=== PATIENT | female | born 1950 | race Caucasian/White ===

== ENCOUNTER → 2016-10-17 | Outpatient (CLI) | payer OTHER, MEDICARE | LOC: BRMIMAGING 08:16 | PROVIDERS: ATTEND Family Medicine | DX: Z12.31 Encounter for screening mammogram for malignant neoplasm of breast (principal) | CPT/HCPCS: G0202 ==

== ENCOUNTER 2017-05-01 12:43 | Day surgery (SDC) | payer OTHER, MEDICARE ==
[2017-05-01] MEDS ORDERED: LIDOCAINE 1% 300 MG/30 ML SDV ONE (12:55)
[2017-05-01] MEDS ORDERED: BACITRACIN 50,000 UNITS/10 ML SYR IRR ONE (12:56)
[2017-05-01] MEDS ORDERED: BUPIVACAINE 0.5% 30 ML SDV ONE (12:56)
[2017-05-01] MEDS ORDERED: ROPIVACAINE HCL 150 MG/30 ML INJ ONE (12:56)
[2017-05-01] MEDS ORDERED: LR 1,000 ML IV ONE (13:08)
[2017-05-01] MEDS ORDERED: MIDAZOLAM 2 MG/2 ML VIAL IVP ONE (13:14)
--- NOTE | 2017-05-01 13:14 | PDANEPAE ---
ANE History of Present Illness R foot HW removal ANE Past Medical History - Cardiovascular History Hx Hypertension: No Hx Arrhythmias: No Hx Chest Pain: No Hx Coronary Artery / Peripheral Vascular Disease: No Hx CHF / Valvular Disease: No Hx Palpitations: No - Pulmonary History Hx COPD: No Hx Asthma/Reactive Airway Disease: No Hx Recent Upper Respiratory Infection: No Hx Oxygen in Use at Home: No Hx Sleep Apnea: No Sleep Apnea Screening Result - Last Documented: Negative - Neurologic History Hx Cerebrovascular Accident: No Hx Seizures: No Hx Dementia: No - Endocrine History Hx Diabetes: No - Renal History Hx Renal Disorders: No - Liver History Hx Hepatic Disorders: No - Neurological & Psychiatric Hx Hx Neurological and Psychiatric Disorders: No - Cancer History Hx Cancer: No - Congenital Disorder History Hx Congenital Disorders: No - GI History Hx Gastrointestinal Disorders: No - Other Health History Other Health History: TINNITUS. OSTEOARTHRITIS - Chronic Pain History Chronic Pain: Yes (RT KNEE) - Surgical History Prior Surgeries: HYSTERECTOMY. JU KNEE SCOPES. INFERTILITY SURG. RT BIG TOE FUSION 2012. WISDOM TEETH ANE Review of Systems Review of systems is: negative Review of Systems: - Exercise capacity Exercise capacity: >=4 METS METS (RN): 4 METS ANE Patient History - Allergies Allergies/Adverse Reactions: No Known Allergies Allergy (Unverified 01/02/12 16:26) - Home Medications Home medications: home medication list seen and reviewed Home Medications: Ascorbic Acid [Vitamin C 500 mg (OTC)] 4,000 mg PO DAILY 08/05/13 [Last Taken ] Multi-Vitamin Daily 04/19/17 [Last Taken 04/30/17] - Smoking Hx Smoking Status: Former smoker ANE Labs/Vital Signs - Vital Signs Height: 175.26 cm Weight: 85.275 kg ANE Anesthesia Plan Anesthesia Plan: MAC (I did not complete the evaluation of this pt nor care for this pt) Total IV Anesthesia: Yes
[2017-05-01 13:35] VITALS: PULSE 68
[2017-05-01] MEDS ORDERED: ceFAZolin 2 GM/SWFI 2 GM/20 ML SYR IVP ONE (14:08)
--- NOTE | 2017-05-01 14:08 | PDHPUP ---
History & Physical Update H&P update statement: This history and physical update is based on an assessment of the patient which was completed after admission or registration (within 24 hours), but prior to the surgery/procedure. NO CHANGE
[2017-05-01] MEDS ORDERED: fentaNYL 100 MCG/2 ML INJ ONE (14:52)
[2017-05-01] MEDS ORDERED: PROPOFOL/EMULSION 500 MG/50 ML BOTTLE IV ONE ×2 (14:53→15:47)
--- NOTE | 2017-05-01 14:59 | PDANEPAE ---
ANE History of Present Illness Patient presents for R foot hardware removal ANE Past Medical History - Cardiovascular History Hx Hypertension: No Hx Arrhythmias: No Hx Chest Pain: No Hx Coronary Artery / Peripheral Vascular Disease: No Hx CHF / Valvular Disease: No Hx Palpitations: No - Pulmonary History Hx COPD: No Hx Asthma/Reactive Airway Disease: No Hx Recent Upper Respiratory Infection: No Hx Oxygen in Use at Home: No Hx Sleep Apnea: No Sleep Apnea Screening Result - Last Documented: Negative - Neurologic History Hx Cerebrovascular Accident: No Hx Seizures: No Hx Dementia: No - Endocrine History Hx Diabetes: No - Renal History Hx Renal Disorders: No - Liver History Hx Hepatic Disorders: No - Neurological & Psychiatric Hx Hx Neurological and Psychiatric Disorders: No - Cancer History Hx Cancer: No - Congenital Disorder History Hx Congenital Disorders: No - GI History Hx Gastrointestinal Disorders: No - Other Health History Other Health History: TINNITUS. OSTEOARTHRITIS - Chronic Pain History Chronic Pain: Yes (RT KNEE) - Surgical History Prior Surgeries: HYSTERECTOMY. JU KNEE SCOPES. INFERTILITY SURG. RT BIG TOE FUSION 2012. WISDOM TEETH ANE Review of Systems Review of Systems: - Exercise capacity METS (RN): 4 METS ANE Patient History - Allergies Allergies/Adverse Reactions: No Known Allergies Allergy (Unverified 01/02/12 16:26) - Home Medications Home medications: home medication list seen and reviewed Home Medications: Ascorbic Acid [Vitamin C 500 mg (OTC)] 4,000 mg PO DAILY 08/05/13 [Last Taken ] Multi-Vitamin Daily 04/19/17 [Last Taken 04/30/17] - NPO status NPO Status: no food or drink >8 hours NPO Since - Liquids (Date): 05/01/17 NPO Since - Liquids (Time): 09:30 NPO Since - Solids (Date): 04/30/17 NPO Since - Solids (Time): 19:00 - Anes Hx Anes Hx: no prior problems - Smoking Hx Smoking Status: Former smoker ANE Labs/Vital Signs - Vital Signs Blood Pressure: 164/101 Heart Rate: 68 Respiratory Rate: 16 O2 Sat (%): 93 Height: 175.26 cm Weight: 85.275 kg ANE Physical Exam - Airway Neck exam: FROM Mallampati Score: Class 1 Mouth exam: normal dental/mouth exam - Pulmonary Pulmonary: no respiratory distress - Cardiovascular Cardiovascular: regular rate and rhythym - ASA Status ASA Status: I ANE Anesthesia Plan Anesthesia Plan: GA with mask (rba discussed)
[2017-05-01] MEDS ORDERED: LIDOCAINE 2% 5 ML SDV ONE ×2 (15:34→15:47)
[2017-05-01] MEDS ORDERED: ONDANSETRON 4 MG/2 ML VIAL ONE (15:34)
[2017-05-01] MEDS ORDERED: OXYCODONE/APAP 5/325 TAB PO PRN (15:58)
[2017-05-01] MEDS ORDERED: HYDROCODONE/APAP 5/325 TAB PO PRN (15:58)
[2017-05-01] MEDS ORDERED: ONDANSETRON 4 MG/2 ML VIAL IVP PRN (15:58)
[2017-05-01] MEDS ORDERED: fentaNYL 100 MCG/2 ML INJ IVP PRN (15:58)
[2017-05-01] MEDS ORDERED: LR 500 ML IV PRN (15:58)
[2017-05-01] MEDS ORDERED: NALOXONE HCL 0.4 MG/ML INJ IVP PRN (15:58)
--- NOTE | 2017-05-01 16:35 | POSTOPPROG ---
Post Op Note Date of Operation: 05/01/17 Surgeon: Dominga Colindres Injection Operator: NONE Anesthesiologist: DR. ANGELIC PATINO Pre-op Diagnosis: DEEP HARDWARE RIGHT FOOT Post-op Diagnosis: DEEP HARDWARE, RIGHT FOOT Indication: PAIN Procedure: REMOVAL OF HARDWARE RIGHT FOOT. SCREWS AND PLATE Inf/Abcess present in the surg proc area at time of surgery?: No Depth: Deep Incisional (Fascial) EBL: Minimal Complications: NONE
[2017-05-01] MEDS ORDERED: KETOROLAC 15 MG/1 ML SDV IVP ONE (16:37)
--- NOTE | 2017-05-01 16:38 | POSTANESTH ---
Post Anesthetic Evaluation Cardiovascular Status: Normal, Stable Respiratory Status: Normal, Stable Level of Consciousness/Mental Status: Alert and Oriented Pain Control: Adequate, Prn Tx Ordered Nausea/Vomiting Control: Adequate, Prn Tx Ordered Complications Possibly Related to Anesthesia: None Noted
[2017-05-01 16:45] VITALS: TEMP 97.3
[2017-05-01] MEDS ORDERED: KETOROLAC 15 MG/1 ML SDV ONE (16:57)
[2017-05-01 17:27] VITALS: BP 138/73; RESP 14; O2SAT 99
--- NOTE | 2017-05-02 04:41 | GOP ---
[f rep st] OPERATIVE REPORT DATE OF OPERATION: 05/01/2017 SURGEON: Dominga Colindres DPM ANESTHESIA: MAC/light general. ANESTHESIOLOGIST: Germain Ding MD PREOPERATIVE DIAGNOSIS: Irritation deep hardware, right foot. POSTOPERATIVE DIAGNOSIS: Irritation deep hardware, right foot. PROCEDURE PERFORMED: 1. Plate and screws, 1st metatarsophalangeal joint, right foot. 2. Separate stab incision for removal of compression screw, 1st metatarsal, right foot. INDICATIONS: Pain times years, sharp at the base of the toe, related to the compression screw. Significant cold feeling, especially in the wintertime of the right foot in area of plate. At this time, she elects to proceed with hardware removal. DESCRIPTION OF PROCEDURE: Patient brought into the operating room, placed on the operating table in the supine position. Intravenous sedation administered by the anesthesiologist. A posterior tibial and peripheral nerve block was obtained utilizing a total of 17 cc of 1:1:1 mix of 1% lidocaine plain, 0.5% Marcaine plain, and 0.5% ropivacaine plain. The lower extremity was prepped and draped in usual sterile manner. After the limb was elevated, exsanguinated with an Esmarch bandage, Webril padding applied under the ankle cuff, ankle tourniquet inflated to 225 mmHg, and the procedure was begun. Attention directed to the dorsal aspect of the 1st metatarsophalangeal joint, where a linear incision was created along the previous incision line. Incision carefully deepened with care of neurovascular structures and clamp and cauterize bleeders. Minimum subcutaneous padding and soft tissue were noted, extensive amount of scar tissue. The plate was noted to be essentially immediately underneath the skin. Soft tissue was carefully reflected off the plate. The screws were removed without complication, and then the plate was quite firmly attached with surrounding bone, bone encompassing plate/embedding it. Once the surrounding bone on the more proximal aspect of the plate was removed, using the maddie shawn, the plate was able to be loosened and removed from the wound in toto. The wound was copiously irrigated with bacitracin irrigation solution. Due to the extensive amount of scar tissue around the metatarsal , subcutaneous tissue quite adhered, I decided not to try to access the compression screw medially through the main incision. Therefore, a separate incision needed to be created for removal of the compression screw. Note: She has had several surgeries on the right foot, which I felt likely has led to this scar tissue formation and minimal subcutaneous and skin mobility. Attention was directed toward the medial aspect, proximal aspect of the medial proximal aspect of the 1st metatarsal head where a firm prominence was noted and skin incision created along the screw head. Incision was carefully deepened with care of neurovascular structures. Screw head was a bit buried in bone along its more medial aspect, and utilizing a Maddie bur, bone was cleared off screw head, and the screw was able to be removed without complication. Wound was copiously irrigated with bacitracin irrigation solution. Tourniquet was released and a normal hyperemic response was noted to all digits. Deep closure obtained with 3-0 and 4-0 Vicryl. Subcutaneous closure achieved with 4- 0 Monocryl, and the skin was closed with 4-0 Prolene in horizontal mattress and simple interrupted suture manner. Patient tolerated the procedure and anesthesia well and left the operating room vital signs stable and vascular status intact to all digits. There were no intraoperative complications. The wound was copiously irrigated throughout the procedure. Estimated blood loss minimal. There were no additional injectables. In postoperative recovery, the patient was doing well without pain. She was fitted with a Cryo/Cuff and a postoperative shoe. She is to follow up in our office in 2 days for wound check. SURGEON: Dominga Colindres DPM PROGNOSIS: Good. /[id number]/MODL MTDD
== END 2017-05-01 17:48 | disposition home or self-care (01) ==
LOC: FSGY 12:43
PROVIDERS: ATTEND Podiatrist
PROC: 0QPN04Z Removal of Internal Fixation Device from Right Metatarsal, Open Approach (ICD-10-PCS; principal; 2017-05-01 14:15)
DX: T84.84XA Pain due to internal orthopedic prosthetic devices, implants and grafts, initial encounter (principal); M79.671 Pain in right foot
CPT/HCPCS: J0690; J1885; J2250; J2405; J2704; J2795; J3010

== ENCOUNTER → 2017-10-18 | Outpatient (CLI) | payer OTHER, MEDICARE | LOC: BRMIMAGING 10:57 | PROVIDERS: ATTEND Family Medicine | DX: Z12.31 Encounter for screening mammogram for malignant neoplasm of breast (principal) ==

== ENCOUNTER → 2018-10-19 | Outpatient (CLI) | payer OTHER, MEDICARE | LOC: EMCIMAGING 08:52 | PROVIDERS: ATTEND Family Medicine | DX: Z12.31 Encounter for screening mammogram for malignant neoplasm of breast (principal) | CPT/HCPCS: 77067-PN ==